=== PATIENT | female | born 2000 | race Caucasian/White ===

== ENCOUNTER 2020-06-19 23:07 | Inpatient (IN) | payer MEDICAID ==
[~2020-06-19] VITALS: Ht 162.6 cm; Wt 98.8 kg
[2020-06-19] MEDS ORDERED: KETOROLAC 30 MG/1 ML IM ONE (23:30)
[2020-06-19] MEDS ORDERED: KETOROLAC 30 MG/1 ML ONE (23:48)
[2020-06-19 23:54] LABS: BASOPHILS % (AUTO) 1 % (0-1); EOSINOPHILS % (AUTO) 2 % (1-7); LYMPHOCYTES % (AUTO) 31 % (22-44); MEAN CORPUSCULAR HEMOGLOBIN 29.3 pg (27.0-34.8); MEAN CORPUSCULAR HGB CONC 33.5 g/dL (32.4-35.8); MEAN PLATELET VOLUME 9.2 fL (7.4-10.4); MONOCYTES % (AUTO) 7 % (2-9); NEUTROPHILS % (AUTO) 59 % (42-75); PLATELET COUNT 239 x10^3/uL (130-400); RED BLOOD COUNT 5.02 x10^6/uL (3.82-5.3)
--- NOTE | 2020-06-19 23:56 | NUR ---
PT RESTING IN BED, PT ON MONITOR WITH PT VSS. PT DENIED ANY CURRENT WANTS OR NEEDS. PT HAS UNLABORED AND EQUAL BREATHS.
[2020-06-20 00:01] LABS: MD NO
[2020-06-20 00:10] LABS: ALBUMIN 3.5 g/dL (3.4-5.0); ANION GAP 3 mmol/L (5-15); CALCIUM 9.1 mg/dL (8.5-10.1); CHLORIDE 110 mmol/L (98-107); CREATININE 1.07 mg/dL (0.55-1.02)
[2020-06-20 00:28] LABS: MICROSCOPIC INDICATED
[2020-06-20] MEDS ORDERED: PROMETHAZINE 25 MG/ML, 1ML ONE ×3 (00:57→21:24)
[2020-06-20] MEDS ORDERED: PROMETHAZINE 25 MG/ML, 1ML IM ONE (01:00)
--- NOTE | 2020-06-20 01:19 | NUR ---
PT REQUESTING NAUSEA MEDS AND PAIN MEDS. PROVIDER NOTIFIED
[2020-06-20] MEDS ORDERED: MORPHINE SULFATE 4 MG/ML, 1ML ONE (01:23)
[2020-06-20] MEDS ORDERED: MORPHINE SULFATE 4 MG/ML, 1ML IVPush PRN (01:30)
--- NOTE | 2020-06-20 01:32 | NUR ---
PT HAD RIGHT KIDNEY STENT PLAVED ON THURSDAY IN [place].
--- NOTE | 2020-06-20 01:55 | NUR ---
Report from Shelley Rashid. Pt waiting for admission to med/surg. RR equal and unlabored, VSS. Reports feeling less pain since morphine. Covid rapid swabbed and walked to lab. AIDET provided, pt agrees with POC.
[2020-06-20] MEDS ORDERED: HYDROcodone/APAP 5/325 TABLET PO PRN (02:00)
[2020-06-20] MEDS ORDERED: ACETAMINOPHEN 325 MG TABLET PO PRN (02:00)
--- NOTE | 2020-06-20 02:08 | NUR ---
Ok to infuse rocephin per admitting physician. Pt and all belongings to floor, report to floor. VSS.
[2020-06-20] MEDS: SODIUM CHLORIDE 0.9% 1,000 ML IV SCH ×2 (02:18→12:39)
[2020-06-20] MEDS: CEFTRIAXONE 1,000 MG in DEXTROSE 5% 50 ML IVPB SCH (02:18)
--- NOTE | 2020-06-20 02:23 | NUR ---
IVF hanging on dial a flow, abx infusing. No rxn. Pt c/o feeling nauseated. Phenergan 25mg IM to LVG prior to tx to floor. All belongings with pt.
[2020-06-20 02:40] VITALS: BP 126/83
[2020-06-20] MEDS ORDERED: ETON68IM3 IMPLANT (03:06)
[2020-06-20] MEDS ORDERED: TIZA2CAP2 PO (03:27)
[2020-06-20] MEDS ORDERED: ZONI100C29 PO (03:27)
[2020-06-20] MEDS ORDERED: CARI3CAP PO (03:27)
[2020-06-20] MEDS ORDERED: CEFD300C37 PO (03:27)
[2020-06-20] MEDS ORDERED: ONDA-89 PO (03:27)
[2020-06-20] MEDS ORDERED: TAMS-11 PO (03:27)
[2020-06-20] MEDS ORDERED: TRAM50TA2 PO (03:27)
[2020-06-20] MEDS ORDERED: OMEP10CA5 PO (03:27)
[2020-06-20] MEDS ORDERED: GABA-826 PO (03:27)
[2020-06-20] MEDS: morphine SULFATE 10 MG/ML, 1ML IVPush PRN ×4 (04:53→20:52)
[2020-06-20 05:47] LABS: BASOPHILS % (AUTO) 1 % (0-1); EOSINOPHILS % (AUTO) 1 % (1-7); LYMPHOCYTES % (AUTO) 32 % (22-44); MEAN CORPUSCULAR HEMOGLOBIN 28.7 pg (27.0-34.8); MEAN CORPUSCULAR HGB CONC 32.7 g/dL (32.4-35.8); MEAN PLATELET VOLUME 9.2 fL (7.4-10.4); MONOCYTES % (AUTO) 8 % (2-9); NEUTROPHILS % (AUTO) 58 % (42-75); PLATELET COUNT 236 x10^3/uL (130-400); RED BLOOD COUNT 4.82 x10^6/uL (3.82-5.3); RED CELL DISTRIBUTION WIDTH 13.9 % (9.6-15.2)
[2020-06-20 05:49] LABS: MD NO
[2020-06-20 06:05] LABS: ANION GAP 5 mmol/L (5-15); CALCIUM 8.5 mg/dL (8.5-10.1); CHLORIDE 112 mmol/L (98-107); CREATININE 0.94 mg/dL (0.55-1.02)
[2020-06-20 07:47] VITALS: BP 124/82
[2020-06-20] MEDS: ONDANSETRON 2MG/ML, 2ML IVPush PRN ×2 (09:20→15:50)
[2020-06-20 13:27] VITALS: BP 124/82
[2020-06-20 19:14] VITALS: BP 121/86
[2020-06-20] MEDS ORDERED: PROMETHAZINE 25 MG/ML, 1ML IM PRN (21:30)
[2020-06-21 00:41] VITALS: BP 119/77
[2020-06-21] MEDS: SODIUM CHLORIDE 0.9% 1,000 ML IV SCH ×3 (00:45→23:56)
[2020-06-21] MEDS: morphine SULFATE 10 MG/ML, 1ML IVPush PRN ×4 (02:46→21:55)
[2020-06-21] MEDS: CEFTRIAXONE 1,000 MG in DEXTROSE 5% 50 ML IVPB SCH (02:46)
[2020-06-21 06:46] VITALS: BP 111/76
[2020-06-21] MEDS: ONDANSETRON 2MG/ML, 2ML IVPush PRN (08:57)
[2020-06-21 09:51] LABS: BASOPHILS % (AUTO) 1 % (0-1); EOSINOPHILS % (AUTO) 4 % (1-7); LYMPHOCYTES % (AUTO) 29 % (22-44); MEAN CORPUSCULAR HEMOGLOBIN 28.8 pg (27.0-34.8); MEAN CORPUSCULAR HGB CONC 32.5 g/dL (32.4-35.8); MEAN PLATELET VOLUME 8.8 fL (7.4-10.4); MONOCYTES % (AUTO) 5 % (2-9); NEUTROPHILS % (AUTO) 62 % (42-75); PLATELET COUNT 256 x10^3/uL (130-400); RED BLOOD COUNT 4.89 x10^6/uL (3.82-5.3); RED CELL DISTRIBUTION WIDTH 13.7 % (9.6-15.2)
[2020-06-21 09:52] LABS: MD NO
[2020-06-21 10:02] LABS: ANION GAP 3 mmol/L (5-15); CHLORIDE 113 mmol/L (98-107)
[2020-06-21 10:03] LABS: CREATININE 0.89 mg/dL (0.55-1.02)
[2020-06-21] MEDS ORDERED: CHLORHEXIDINE 15 ML UDC ONE (11:36)
[2020-06-21] MEDS ORDERED: CHLORHEXIDINE 15 ML UDC PO ONE (12:00)
[2020-06-21] MEDS ORDERED: FENTANYL PF 100 MCG/2ML ONE ×2 (12:12→14:35)
[2020-06-21] MEDS ORDERED: MIDAZOLAM 1 MG/ML, 2ML ONE (12:12)
[2020-06-21] MEDS ORDERED: OXYcodone 5 MG/5 ML ORAL.SOL UDC PO PRN (12:30)
[2020-06-21] MEDS ORDERED: ONDANSETRON 2MG/ML, 2ML IVPush PRN (12:30)
[2020-06-21] MEDS ORDERED: HYDROcodone/APAP 7.5-325MG/15ML UDC PO PRN (12:30)
[2020-06-21] MEDS ORDERED: KETOROLAC 30 MG/1 ML IVPush PRN (12:30)
[2020-06-21] MEDS ORDERED: MEPERIDINE/PF 25MG/0.5ML IVPush PRN (12:30)
[2020-06-21] MEDS ORDERED: HYDROmorphone 1 MG/ML, 1ML INJ IVPush PRN (12:30)
[2020-06-21] MEDS ORDERED: PROMETHAZINE 25 MG/ML, 1ML IVPush PRN (12:30)
[2020-06-21] MEDS ORDERED: PROPOFOL 10 MG/ML, 20ML ONE (13:36)
[2020-06-21] MEDS ORDERED: DEXAMETHASONE 4 MG/ML, 1ML ONE (13:36)
[2020-06-21] MEDS ORDERED: KETOROLAC 30 MG/1 ML ONE (13:36)
[2020-06-21] MEDS ORDERED: ONDANSETRON 2MG/ML, 2ML ONE (13:36)
[2020-06-21] MEDS ORDERED: CEFAZOLIN 1,000 MG ONE (13:36)
[2020-06-21] MEDS: FENTANYL PF 100 MCG/2ML IV PRN ×2 (14:40→14:45)
[2020-06-21] MEDS ORDERED: PROMETHAZINE 25 MG/ML, 1ML ONE (15:00)
[2020-06-21] MEDS ORDERED: HYDROmorphone 1 MG/ML, 1ML INJ ONE (15:11)
[2020-06-21] MEDS ORDERED: TIZANIDINE 2MG TABLET PO PRN (16:00)
[2020-06-21] MEDS ORDERED: ONDANSETRON ODT 4 MG PO PRN (16:00)
[2020-06-21] MEDS: PHENAZOPYRIDINE 200 MG TABLET PO SCH ×2 (16:38→21:54)
[2020-06-21] MEDS: KETOROLAC 30 MG/1 ML IV PRN ×2 (17:01→23:56)
[2020-06-21 19:47] VITALS: BP 125/84
[2020-06-21] MEDS ORDERED: ZONISAMIDE 50 MG CAPSULE PO SCH (21:00)
[2020-06-21] MEDS: GABAPENTIN 100 MG CAPSULE PO SCH (21:54)
[2020-06-22 00:21] VITALS: BP 115/68
[2020-06-22] MEDS: morphine SULFATE 10 MG/ML, 1ML IVPush PRN ×2 (01:52→05:47)
[2020-06-22] MEDS: CEFTRIAXONE 1,000 MG in DEXTROSE 5% 50 ML IVPB SCH (01:53)
[2020-06-22 04:50] LABS: BASOPHILS % (AUTO) 0 % (0-1); EOSINOPHILS % (AUTO) 0 % (1-7); LYMPHOCYTES % (AUTO) 9 % (22-44); MEAN CORPUSCULAR HEMOGLOBIN 28.7 pg (27.0-34.8); MEAN CORPUSCULAR HGB CONC 32.7 g/dL (32.4-35.8); MEAN PLATELET VOLUME 9.3 fL (7.4-10.4); MONOCYTES % (AUTO) 3 % (2-9); NEUTROPHILS % (AUTO) 89 % (42-75); PLATELET COUNT 284 x10^3/uL (130-400); RED BLOOD COUNT 5.04 x10^6/uL (3.82-5.3); RED CELL DISTRIBUTION WIDTH 13.6 % (9.6-15.2)
[2020-06-22 04:51] LABS: MD NO
[2020-06-22 05:04] LABS: ANION GAP 5 mmol/L (5-15); CHLORIDE 113 mmol/L (98-107)
[2020-06-22 05:05] LABS: CREATININE 0.76 mg/dL (0.55-1.02)
[2020-06-22] MEDS ORDERED: OMEPRAZOLE 10 MG CAPSULE.DR PO SCH (06:00)
[2020-06-22 07:06] VITALS: BP 110/69
[2020-06-22] MEDS: PHENAZOPYRIDINE 200 MG TABLET PO SCH (08:14)
[2020-06-22] MEDS: GABAPENTIN 100 MG CAPSULE PO SCH (08:15)
[2020-06-22] MEDS: ONDANSETRON 2MG/ML, 2ML IVPush PRN (08:15)
[2020-06-22] MEDS ORDERED: FLUC150T2 PO (08:49)
[2020-06-22] MEDS ORDERED: TRAM50TA2 PO (08:49)
[2020-06-22] MEDS ORDERED: ONDA-89 PO (08:52)
[2020-06-22] MEDS ORDERED: TAMSULOSIN 0.4 MG CAP.ER.24H PO SCH (09:00)
[2020-06-22] MEDS ORDERED: VRAYLAR 3 MG HOMEMEDPO SCH (09:00)
[2020-06-22 10:13] VITALS: BP 118/79
== END 2020-06-22 10:45 | disposition home or self-care (01) | DRG 670 ==
LOC: ED 06-20 00:34 → OBSVTOIN 06-20 01:50 → EDIP 06-20 01:50 → 4NE 06-20 02:50 → DCLOUNGE 06-22 10:27
PROVIDERS: ADMIT Family Medicine; ATTEND Internal Medicine
PROC: 0TC68ZZ Extirpation of Matter from Right Ureter, Via Natural or Artificial Opening Endoscopic (ICD-10-PCS; principal; 2020-06-20)
PROC: 0TP98DZ Removal of Intraluminal Device from Ureter, Via Natural or Artificial Opening Endoscopic (ICD-10-PCS; 2020-06-20)
DX: N13.2 Hydronephrosis with renal and ureteral calculous obstruction (principal); E66.9 Obesity, unspecified; F17.200 Nicotine dependence, unspecified, uncomplicated; F31.9 Bipolar disorder, unspecified; M79.7 Fibromyalgia; Z87.442 Personal history of urinary calculi; Z20.822 Contact with and (suspected) exposure to COVID-19; Z88.6 Allergy status to analgesic agent; Z68.37 Body mass index [BMI] 37.0-37.9, adult; Z88.0 Allergy status to penicillin; Z91.040 Latex allergy status
CPT/HCPCS: 36415; 74018; 74176; 76000; 76770; 80048; 81001; 82040; 82360; 84703; 85025; 87077; 87086; 87635; 88300; 96372; 96374; 96375; G0378; J0690; J0696; J1100; J1170; J1885; J2250; J2405; J2550; J2704; J3010; Q0162; J2270; J7030